=== PATIENT | female | born 1965 | race Caucasian/White ===

== ENCOUNTER 2016-04-01 13:30 | Inpatient (IN) | payer OTHER, MEDICARE ==
[~2016-04-01] VITALS: Ht 161.3 cm; Wt 121.7 kg
[~2016-04-01 13:30] MED LIST: CIPRO 500MG (E500 MG PO; FLAG500 PO; REGLAN10 MG PO
--- NOTE | 2016-04-01 13:40 | NUR ---
50 Y/0 FEMALE BIBA, ON PEER, FOR PSYCH EVAL. PER EMS, PTS MOTHER CALLED 911 BECAUSE "FRIENDS SAID SHE SAID SHE WAS GOING TO KILL HERSELF .. FAMILY MEMBERS CONCERNED FOR HER SAFETY". PT PLEASANT ON ARIVAL TO ED. STATING SHE HAS A "CHEMICAL IMBALANCE" PT ARRIVES WITH 2 PAGE HAND WRITTEN NOTE, WRITTEN BY MOTHER, REGARDING PT'S HISTORY, PLACED WITH CHART
--- NOTE | 2016-04-01 13:41 | NUR ---
SECURITY AT BEDSIDE TO DINO PINEDA
--- NOTE | 2016-04-01 13:53 | NUR ---
PT REFUSING TO GET CHANGED EXPLAINED TO PT ALL THAT NEEDS TO HAPPEN FOR HER TO BE EVALUATED BY CRISIS PT STATES SHE WILL JUST LEAVE SECURITY AT BEDSIDE PT AWARE THE LONGER SHE TAKES TO UNDRESS THE LONGER IT WILL TAKE FOR HER TO BE EVALUATED
--- NOTE | 2016-04-01 14:05 | NUR ---
PT TOLD SHE WOULD BE HERE FOR A FEW DAYS IF SHE DIDN'T CHANGE INTO PAPER SCRUBS PT STATES IM GOING TO CHANGE THEN PT GIVEN PAPER SCRUBS AND SHOWN TO THE BR
--- NOTE | 2016-04-01 14:08 | ED PSYCHIATRIC COMPLAINT ---
See Addendum History of Present Illness General Chief Complaint: Psychiatric Related Complaint Stated Complaint: BIBA ON PEER Source: patient, old records, EMS Exam Limitations: clinical condition Vital Signs & Intake/Output Vital Signs & Intake/Output Vital Signs Date Time Temp Pulse Resp B/P Pulse O2 O2 Flow FiO2 Ox Delivery Rate 04/02 0434 Room Air 04/02 0343 98.8 96 18 151/90 95 Room Air 04/02 0008 Room Air 04/01 2026 97.9 94 18 144/91 92 Room Air 04/01 1537 98.9 93 18 103/64 92 Room Air 04/01 1443 97.8 04/01 1431 97 04/01 1336 97.8 92 18 164/91 98 Room Air ED Intake and Output 04/02 0000 04/01 1200 Intake Total 0 Output Total Balance 0 Intake, Oral 0 Patient 210 lb Weight Allergies Coded Allergies: daptomycin (Severe, PALPITATIONS 04/01/16) Penicillins (Intermediate, HIVES 01/23/16) adhesive tape (Intermediate, BLISTERS 01/24/16) povidone-iodine (Intermediate, BLISTERS AND SKIN SLOUGHING 01/23/16) Uncoded Allergies: TEGADERM (BLISTERS 01/26/12) Reconcile Medications Ciprofloxacin (Cipro) 500 MG TAB 1 TAB PO BID GASTROENTERITIS METOCLOPRAMIDE HCL (Reglan) 10 MG TAB 1 TAB PO TID PRN NAUSEA Metronidazole (Flagyl) 500 MG TAB 500 MG PO Q6 GASTROENTERITIS Triage Note: 50 Y/0 FEMALE SONAM, ON PEER, FOR PSYCH EVAL. PER EMS, PTS MOTHER CALLED 911 BECAUSE "FRIENDS SAID SHE SAID SHE WAS GOING TO KILL HERSELF .. FAMILY MEMBERS CONCERNED FOR HER SAFETY". PT PLEASANT ON ARIVAL TO ED. STATING SHE HAS A "CHEMICAL IMBALANCE" PT ARRIVES WITH 2 PAGE HAND WRITTEN NOTE, WRITTEN BY MOTHER, REGARDING PT'S HISTORY, PLACED WITH CHART Triage Nurses Notes Reviewed? yes Onset: Just prior to arrival Duration: day(s): Timing: recent history Severity: moderate Associated Symptoms: anxiety, impaired concentration, suicidal ideation LMP (ages 10-50): unknown : No Patient currently breastfeeds: No HPI: Mother called police for reports that the patient had suicidal ideation expressed to her friends. The patient denies suicidality her chills nausea vomiting diarrhea abdominal pain chest pain shortness of breath headache dysuria rash bleeding hallucination homicidal ideation. Initially she resisted protocol of undressing and laboratory exams. (JOHN LEE MD) Past History Travel History Traveled to [place] past 21 day No Medical History Any Pertinent Medical History? see below for history Neurological: NONE EENT: NONE Cardiovascular: NONE, hypertension Respiratory: NONE Gastrointestinal: NONE Hepatic: NONE Renal: NONE Musculoskeletal: 19 LEVEL SPINAL FUSION POST OP STAPH Psychiatric: NONE Endocrine: NONE Blood Disorders: NONE Cancer(s): NONE RN REHAB/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, history of hysterectomy Other Medical Hx: History of extensive back surgeries for scoliosis; bipolar disorder Pneumonia Vaccine: 12/04/15 Surgical History Surgical History: , hysterectomy, BREAST REDUCTION L ACL SHOULDER REPAIR TONSILECTOMY ADDNOIDS REMOVED Psychosocial History Who do you live with Other (see notes) What is your primary language Welsh Tobacco Use: Current Daily Use Daily Tobacco Use Amount/Type: => 5 Cigarettes daily Family History Hx Contributory? No (JOHN LEE MD) Review of Systems Review of Systems Constitutional: Reports: no symptoms. EENTM: Reports: no symptoms. Respiratory: Reports: no symptoms. Cardiovascular: Reports: no symptoms. GI: Reports: no symptoms. Genitourinary: Reports: no symptoms. Musculoskeletal: Reports: no symptoms. Skin: Reports: no symptoms. Neurological/Psychological: Reports: see HPI, anxiety, confusion, depressed, emotional problems. Hematologic/Endocrine: Reports: no symptoms. Immunologic/Allergic: Reports: no symptoms. All Other Systems: Reviewed and Negative (JOHN LEE MD) Physical Exam Physical Exam General Appearance: well developed/nourished, alert, awake, anxious, mild distress Head: atraumatic, normal appearance Eyes: Bilateral: normal appearance, PERRL, EOMI. Ears, Nose, Throat: normal pharynx, normal ENT inspection, hearing grossly normal Neck: normal inspection, supple Respiratory: normal breath sounds Cardiovascular: regular rate/rhythm Gastrointestinal: soft, non-tender Extremities: normal range of motion Neurological/Psychiatric: no motor/sensory deficits, awake, agitated, alert, anxious, pigment and lacquer mixer II-XII nml as tested, oriented x 3 Appearance/Memory/Insight: disheveled, impaired insight Behavoir/Eye Contact/Speech: uncooperative, threatening eye contact Thoughts/Hallucinations: no apparent hallucination Skin: intact, normal color, warm/dry SAD PERSONS SAD PERSONS Response Value Age <19 or >45 years? yes 1 Depression/Hopelessness? yes 2 Previous Attempts/Psych Care yes 1 Excessive Ethanol/Drug Use? yes 1 Rational Thinking Loss? yes 2 Single//? yes 1 Organized/Serious Attempt yes 2 Social Support? has support 0 Stated Future Intent? yes 2 Total 12 SAD PERSONS Done? yes (JOHN LEE MD) Progress Differential Diagnosis: drug intoxication, drug overdose, drug withdrawal, electrolyte abnormality, hypoglycemia Plan of Care: Orders Procedure Date/time Status Regular Diet 04/01 D Active ED CRISIS PSYCH CONSULT 04/01 1354 Active Continuous Observation Monitor 04/01 1344 Active URINE DRUG SCREEN FOR ER ONLY 04/01 1344 Complete ETHANOL 04/01 1344 Complete COMPREHENSIVE METABOLIC PANEL 04/01 1344 Complete CBC WITHOUT DIFFERENTIAL 04/01 134 Complete Laboratory Tests 04/01/16 1548: Urine Opiates Screen < 100.00, Methadone Screen < 40, Barbiturate Screen < 60, Ur Phencyclidine Scrn < 6.00, Amphetamines Screen < 100, U Benzodiazepines Scrn < 85, Urine Cocaine Screen < 50, Urine Cannabis Screen < 5.00 04/01/16 1431: Anion Gap 11, Estimated GFR > 60, BUN/Creatinine Ratio 21.7, Glucose 92, Calcium 9.6, Total Bilirubin 0.5, AST 22, ALT 39, Alkaline Phosphatase 98, Total Protein 7.7, Albumin 4.3, Globulin 3.4, Albumin/Globulin Ratio 1.3, CBC w Diff NO MAN DIFF REQ, RBC 4.43, MCV 90.9, MCH 30.9, RDW 13.2, MPV 7.8, Gran % 66.0, Lymphocytes % 24.1, Monocytes % 6.4, Eosinophils % 2.8, Basophils % 0.7, Absolute Granulocytes 5.9, Absolute Lymphocytes 2.2, Absolute Monocytes 0.6, Absolute Eosinophils 0.3, Absolute Basophils 0.1, PUBS MCHC 34.0, Serum Alcohol < 10.0 7:16 AM Patient signed out to me by Dr. Lee. Pending crisis evaluation. (MINH RAWLS,BETZY) Hand-Off Endorsed To: BETZY WILKINSON MD Endorsed Time: 1899 Pending: consult (JOHN LEE MD) Hand-Off Endorsed To: JOHN LEE MD Endorsed Time: 0700 Pending: consult (INPATIENT BED SEARCH) (BETZY WILKINSON MD) Departure Departure Disposition: STILL A PATIENT Condition: Stable Clinical Impression Primary Impression: Bipolar disorder Qualifiers: Active/Remission status: currently active Current bipolar episode type: mixed Current episode severity: moderate Qualified Code: F31.62 - Bipolar disorder, current episode mixed, moderate Secondary Impressions: Chronic pain syndrome Referrals: CATHLEEN MEDINA MD (PCP/Family) Departure Forms: Customer Survey General Discharge Information (JOHN LEE MD)
--- NOTE | 2016-04-01 14:28 | NUR ---
PT ASSISTED BY TWO FEMALE NURSES TO CHANGE INTO PAPER SCRUBS.
[2016-04-01 14:40] LABS: ABSOLUTE BASOPHIL COUNT 0.1 /CUMM (0.0-0.2); ABSOLUTE EOSINOPHIL COUNT 0.3 /CUMM (0.0-0.7); ABSOLUTE GRANULOCYTE CT 5.9 /CUMM (1.4-6.5); ABSOLUTE LYMPH COUNT 2.2 /CUMM (1.2-3.4); ABSOLUTE MONOCYTE COUNT 0.6 /CUMM (0.10-0.60); BASOPHIL % 0.7 % (0.0-2.0); EOSINOPHIL % 2.8 % (0-5); HEMATOCRIT 40.3 % (37-47); MEAN CORPUSCULAR HGB 30.9 PG (27.0-31.0); MEAN CORPUSCULAR VOLUME 90.9 FL (81.0-99.0); MEAN PLATELET VOLUME 7.8 FL (7.4-10.4); PLATELET COUNT 329 /CUMM (130-400); RBC DISTRIBUTION WIDTH 13.2 % (11.5-14.5); RED BLOOD CELL CT 4.43 /CUMM (4.20-5.40)
--- NOTE | 2016-04-01 14:43 | NUR ---
PT C/O BACK PAIN MEDICATED WITH MOTRIN AT THIS TIME FIRST PILL PT DROPPED ON FLOOR
--- NOTE | 2016-04-01 15:07 | NUR ---
ASSUMING CARE OF PT AT THIS TIME
--- NOTE | 2016-04-01 16:16 | NUR ---
PER SITTER STAFF, PT AGITATED, STATING HER BACK IS HURTING HER AND SHE WANTS TO LEAVE. THIS RN TO BEDSIDE. CHAIR FROM CONSULTATION ROOM OFFERED, PT STATES THAT WOULD HELP A LOT WITH HER BACK PAIN. POC EXPLAINED TO PATIENT. PT STATES SHE CAME HERE ON HER OWN FREE WILL AND HAS MANY OUTPATIENT PROVIDERS IN PLACE FOR HER PSYCHIATRIC NEEDS. PEER LOCATED IN PT'S CHART.
--- NOTE | 2016-04-01 16:29 | NUR ---
ROGER PROVIDED. AWARE THAT WE'RE WAITING ON URINE RESULTS.
--- NOTE | 2016-04-01 18:27 | NUR ---
CALLED DIETARY FOR A TURKEY SANDWICH WITH MUSTARD AND MAYONAISE PER PTS REQUEST...OK PER DR LEE
--- NOTE | 2016-04-01 18:57 | NUR ---
per ore charger frank patient is to no longer use the phone because she is calling family and friends to be discharged and she is not being discharged and does not need a ride home
--- NOTE | 2016-04-01 19:03 | NUR ---
PTs MOTHER CALLED ASKING IF SHE SHOULD COME IN AND INSOLE BOTTOM FILLER PT ADVISED NOT TO INSOLE BOTTOM FILLER PT AT THIS TIME MOTHERS PHONE NUMBER [phone]
--- NOTE | 2016-04-01 19:13 | NUR ---
PT MEDICATED WITH DAILY PSYCH MEDS AT THIS TIME, PT COOPERATIVE WITH MEDS, CURRENTLY STANDING WATCHING TV IN ROOM, MAKING NO ATTEMPTS TO LEAVE AT THIS MOMENT.
--- NOTE | 2016-04-01 19:30 | NUR ---
PATIENT INSISTING ON GETTING HER PRESCRIPTIONS AND DISCHARGE PAPERWORK INSISTING SHE IS NOT STAYING HERE
--- NOTE | 2016-04-01 21:09 | NUR ---
CRISIS AT BEDSIDE SETTING LIMITS WITH PT
--- NOTE | 2016-04-01 22:00 | NUR ---
ATTEMPTED TO MEDICATE PT WITH PM MEDS, PT REFUSING ALL MEDS AT THIS TIME STATING "I'M GOING TO JUST GO OUT AND HAVE A CIGARETTE SO I DON'T NEED ANY OF THIS STUFF." PT CURRENTLY SITTING IN ROOM, JUST FINISHED SPEAKING WITH CRISIS. SITTERS REMAIN IN ATTENDANCE.
--- NOTE | 2016-04-01 22:10 | NUR ---
DISCUSSED PHONE PRIVILEGES WITH CRISIS. THIS RN AND CRISIS AGREED THAT PT CAN HAVE ONE BRIEF PHONE CALL TO SON. PT MADE AWARE OF PHONE CALL PRIVILEGE.
--- NOTE | 2016-04-01 22:18 | NUR ---
PER CRISIS PT ALLOWED TO MAKE ONE PHONE CALL TO CALL HER SON. PATIENT MADE PHONE CALL AND LEFT MESSAGE.
--- NOTE | 2016-04-01 23:00 | NUR ---
PT REFUSING MEDICATIONS AGAIN. STATES SHE DOES NOT WANT TO TAKE THEM HERE.
--- NOTE | 2016-04-01 23:22 | NUR ---
PT REFUSE VITALS. INFORMED FLORI GARCES
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
--- NOTE | 2016-04-02 01:49 | NUR ---
PT SLEEPING AT THIS TIME, SITTER AT BEDSIDE, NO DISTRESS NOTED.
--- NOTE | 2016-04-02 03:49 | NUR ---
PT MEDICATED WITH 800MG MOTRIN. PT CALM AND COOPERATIVE
--- NOTE | 2016-04-02 05:13 | NUR ---
PT SLEEPING AT THIS TIME, SITTER AT BEDSIDE FOR SAFETY, NAD.
--- NOTE | 2016-04-02 06:39 | NUR ---
PT SLEEPING, SITTER AT BEDSIDE FOR SAFETY, NAD
--- NOTE | 2016-04-02 08:11 | NUR ---
PT MEDICATED WITH TYLENOL FOR H/A PAIN PER PT REQUEST AND ORDERS OF DR LEE. PT THEN REQUESTED ALL AM MEDICATIONS. REQUESTED SAME FROM DR LEE AND PHARMACY.
--- NOTE | 2016-04-02 08:32 | NUR ---
PT MEDICATED WITH CYMBALTA, NORVASC AND RISPERIDONE PER ORDERS DR LEE. ICE COFFEE REQUESTED FROM [employer] PER PATIENT REQUEST.
--- NOTE | 2016-04-02 12:02 | NUR ---
PT LYING ON BED WATCHING TV. PT CALM AND COOPERATIVE WITH VITALS. PT REPORTS HER MOTHER IS COMING IN AT 1300 TO MEET WITH CRISIS. PROVIDED PT WITH BLANKET SHE REPORTED SHE IS COLD.
--- NOTE | 2016-04-02 13:44 | NUR ---
FAMILY PRESENT IN ROOM WITH PATIENT. PT IS CALM AND COOPERATIVE.
--- NOTE | 2016-04-02 15:58 | NUR ---
PT REPORTS THAT HER FAMILY MEETING WITH SW TODAY WENT WELL. PT STATES "THEY JUST WANT WHAT IS BEST FOR ME". PT IS A BED SEARCH.
--- NOTE | 2016-04-02 17:17 | NUR ---
PT AWAKE IN ROOM 13 WATCHING TV/ PT CALM AND COOPERATIVE. PT REQUESTED AND WAS PROVIDED WITH NIDHI BORGES. PT ASKED IF THERE WERE ANY BEDS AVAILABLE HERE.
--- NOTE | 2016-04-02 18:57 | NUR ---
PT REFUSING VITALS NURSE AWARE
--- NOTE | 2016-04-02 19:08 | NUR ---
PT SITTING ON BED. PT'S MOTHER VISITED. SITTERS PRESENT
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
--- NOTE | 2016-04-02 21:01 | NUR ---
PT CALM AND COOPERATIVE, WATCHING TV IN ROOM 13. PT ALLOWED VITALS TO BE TAKEN. PT REQUESTING SOMETHING FOR PAIN (BACK, KNEES AND HEAD). PIS 09/11. SITTER PRESENT FOR SAFETY
--- NOTE | 2016-04-02 22:08 | NUR ---
MEDICATED PT WITH RISPERIDONE 1MG AND MOTRIN 600MG
--- NOTE | 2016-04-03 01:26 | NUR ---
PT SLEEPING ON BED IN ROOM. NO APPARENT DISTRESS NOTED. SITTER PRESENT
--- NOTE | 2016-04-03 03:30 | NUR ---
PT AWAKE FOR VITAL SIGNS, ALERT AND ORIENTED, DENIES ANY REQUESTS. VSS. SITTER REMAINS AT DOORWAY.
--- NOTE | 2016-04-03 06:19 | NUR ---
PT AWAKE AND ALERT, CALM COPERATIVE , SITTING UP ON BED WATCHING TV . OFFERS NO COMPLAINTS
--- NOTE | 2016-04-03 08:07 | NUR ---
ASSUMED CARE OF THIS PATIENT REPORT RECEIVED FROM FLORI CUNHA PT STANDING UP IN ROOM UPON THIS RN ARRIVAL. COMPLAINS OF GENERALIZED BODY PAINS. REQUESTING MEDS FOR PAIN AND AM MEDS. DISCUSSED NEED FOR DAILY NORVASC ORDER WITH DR BUSH AND CALLED PHARMACY FOR OTHER AM MEDS.
--- NOTE | 2016-04-03 08:29 | NUR ---
PT MEDICATED WITH CYMBALTA, NORVASC, RISPERIDONE AND MOTRIN PER ORDERS. CALLED [facility] FOR ICE COFFEE, SPOKE WITH VISHNU.
--- NOTE | 2016-04-03 10:00 | NUR ---
PT STATES " WAS HERE BRIEFLY AND SAID HE WAS GOING TO GIVE ME A NICOTINE PATCH AND SOMETHING MORE FOR PAIN". ADVISED PATIENT WILL INVESTIGATE SAME.
--- NOTE | 2016-04-03 11:30 | NUR ---
PT MEDICATED WITH NICOTINE PATCH AND TYLENOL PER ORDERS EATING LUNCH AT PRESENT
--- NOTE | 2016-04-03 13:21 | NUR ---
PT REFUSED EKG AT THIS TIME.
--- NOTE | 2016-04-03 13:28 | NUR ---
PT RE-VITALED. REQUESTS PATIENT ADVOCATE NUMBER, PHONE NUMBER PROVIDED BY UMBERTO GOFF. ASKED PATIENT IF THERE WAS SOMETHING THIS RN COULD ASSIST HER WITH AND PT RESPONDED THAT IT WAS ABOUT HER FAMILY HAVING "DONE THIS TO HER BEFORE", "THEY DIDN'T LIKE ME TALKING AND FOLDING LAUNDRY AT THE SAME TIME", "IT'S MY HOUSE ANYWAYS". PT IS WITH RELATIVELY CALM AFFECT WHY STATING ALL OF THE ABOVE. UMBERTO REMAINS AT DOOR. WILL CONTINUE TO MONITOR.
--- NOTE | 2016-04-03 15:45 | NUR ---
ASSUMED CARE OF PT PER FLORI LIMON.
--- NOTE | 2016-04-03 16:27 | NUR ---
PT MEDICATED WITH 600MG MOTRIN PO FOR BACK PAIN.
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
--- NOTE | 2016-04-03 20:04 | NUR ---
REPORT GIVEN TO FLORI CROSS ON CPS.
--- NOTE | 2016-04-03 20:05 | NUR ---
SECUTIRY CALLED TO ASSIST PT DOWN TO CPS ALONG WITH KACIETER.
--- NOTE | 2016-04-03 23:06 | NUR ---
PT IS A 50 YR OLD FEMALE WHO RETURNS TO THIS UNIT WITH BIPOLAR DISORDER, DEPRESSED. PT STATES SHE ALSO HAS OCD. PT IS HERE ON A PEC. 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 PT HAS HAD MULTIPLE SURGERIES AND SPINAL FUSIONS. SHE HAS RECENTLY BEEN NON-COMPLIANT C MEDS. PT LIVES C MOM, WHO COMPLAINS SHE HAS BEEN ACTING BIZARRELY. HER SLEEP HAS BEEN POOR. PT LAST HERE IN Jan.
--- NOTE | 2016-04-04 06:49 | NUR ---
PATIENT WAS INITIALLY ANXIOUS AT BEGINNING OF NIGHT, BUT WAS ABLE TO SLEEP AFTER TAKING PRN HYDROXYZINE.
[2016-04-04 07:58] VITALS: BP 149/104
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
[2016-04-04 12:09] VITALS: BP 171/96
--- NOTE | 2016-04-04 12:56 | History & Physical ---
General Information and HPI MD Statement: I have seen and personally examined GREG SHARMA and documented this H&P. The patient is a 50 year old F who presented with a patient stated chief complaint of suicidal and illegal drug use. Source of Information: patient Exam Limitations: no limitations History of Present Illness: 50-year-old female with past medical history sick for hypertension, chronic back pain, history of spinal fusion in the past, history of bipolar disorder, history of opiate use in the past who is admitted with delusions as well as according to the family patient was suicidal. Family did not feel safe with the patient going home. According to the note, patient was dealing Xanax from other family members. She was also doing some veered pain. Currently she does complain of pain in her back and in her knees. She had been treated recently with some kind of infection with Cipro and Flagyl. She claims that she has finished the course. She takes Norvasc for high blood pressure but her blood pressure seems to be running high. Allergies/Medications Allergies: Coded Allergies: daptomycin (Severe, PALPITATIONS 04/01/16) Penicillins (Intermediate, HIVES 01/23/16) adhesive tape (Intermediate, BLISTERS 01/24/16) povidone-iodine (Intermediate, BLISTERS AND SKIN SLOUGHING 01/23/16) Uncoded Allergies: TEGADERM (BLISTERS 01/26/12) Home Med list Ciprofloxacin (Cipro) 500 MG TAB 1 TAB PO BID GASTROENTERITIS METOCLOPRAMIDE HCL (Reglan) 10 MG TAB 1 TAB PO TID PRN NAUSEA Metronidazole (Flagyl) 500 MG TAB 500 MG PO Q6 GASTROENTERITIS Past History Travel History Traveled to [place] past 21 day No Medical History Neurological: LEFT SIDED DEFICIT; BANGED HEAD A FEW TIMES; EENT: NONE Cardiovascular: NONE, HTN- NORVASC Respiratory: SMOKES 1/2 TO 2 A DAY Gastrointestinal: GASTRIC DISTRESS "DAILY" Hepatic: NONE Renal: HX OF DAMAGE TO KIDNEYS AFTER EXTENSIVE ANTIBIOTI Musculoskeletal: 19 LEVEL SPINAL FUSION POST OP STAPH Psychiatric: BIPOLAR; OCD; DEPRESSION Endocrine: NONE Blood Disorders: MULTIPLE TRANSFUSIONS AND BONE GRAFTING Cancer(s): NONE 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 Home Employment History Employment Disability Profession/Employer Has not worked for 10 years Review of Systems Review of Systems Constitutional: Reports: see HPI. EENTM: Reports: see HPI. Cardiovascular: Reports: see HPI. Respiratory: Reports: see HPI. GI: Reports: see HPI. Genitourinary: Reports: see HPI. Musculoskeletal: Reports: see HPI. Skin: Reports: see HPI. Neurological/Psychological: Reports: see HPI. Exam & Diagnostic Data Last 24 Hrs of Vital Signs/I&O Vital Signs Date Time Temp Pulse Resp B/P Pulse O2 O2 Flow FiO2 Ox Delivery Rate 04/04 1209 80 171/96 04/04 0803 91 149/104 04/04 0758 96.7 91 149/104 04/03 1515 99.3 84 18 148/67 96 04/03 1327 98.1 94 20 165/83 97 Room Air Intake & Output 04/04 1600 04/04 0800 04/04 0000 Intake Total Output Total Balance Patient 268 lb Weight Physical Exam General Appearance Alert, Oriented X3, Cooperative, No Acute Distress Skin No Rashes HEENT PERRLA Neck Supple Cardiovascular Regular Rate, Normal S1, Normal S2 Lungs Clear to Auscultation Abdomen Normal Bowel Sounds, Soft, No Tenderness Neurological Cranial Nerves II through XII: intact Extremities No Edema Last 24 Hrs of Labs/Alhaji: Laboratory Tests 04/03 04/01 04/01 1248 1548 1431 Chemistry Sodium (137 - 145 mmol/L) 142 Potassium (3.5 - 5.1 mmol/L) 4.6 Chloride (98 - 107 mmol/L) 106 Carbon Dioxide (22 - 30 mmol/L) 25 Anion Gap (5 - 16) 11 BUN (7 - 17 mg/dL) 13 Creatinine (0.5 - 1.0 mg/dL) 0.6 Estimated GFR (>60 ml/min) > 60 BUN/Creatinine Ratio (7 - 25 %) 21.7 Glucose (65 - 99 mg/dL) 92 Calcium (8.4 - 10.2 mg/dL) 9.6 Total Bilirubin (0.2 - 1.3 mg/dL) 0.5 AST (14 - 36 U/L) 22 ALT (9 - 52 U/L) 39 Alkaline Phosphatase (<127 U/L) 98 Total Protein (6.3 - 8.2 g/dL) 7.7 Albumin (3.5 - 5.0 g/dL) 4.3 Globulin (1.9 - 4.2 gm/dL) 3.4 Albumin/Globulin Ratio (1.1 - 2.2 %) 1.3 TSH (0.270 - 4.200 uIU/mL) 2.110 Hematology CBC w Diff NO MAN DIFF REQ WBC (4.8 - 10.8 /CUMM) 9.0 RBC (4.20 - 5.40 /CUMM) 4.43 Hgb (12.0 - 16.0 G/DL) 13.7 Hct (37 - 47 %) 40.3 MCV (81.0 - 99.0 FL) 90.9 MCH (27.0 - 31.0 PG) 30.9 RDW (11.5 - 14.5 %) 13.2 Plt Count (130 - 400 /CUMM) 329 MPV (7.4 - 10.4 FL) 7.8 Gran % (42.2 - 75.2 %) 66.0 Lymphocytes % (20.5 - 51.1 %) 24.1 Monocytes % (1.7 - 9.3 %) 6.4 Eosinophils % (0 - 5 %) 2.8 Basophils % (0.0 - 2.0 %) 0.7 Absolute Granulocytes (1.4 - 6.5 /CUMM) 5.9 Absolute Lymphocytes (1.2 - 3.4 /CUMM) 2.2 Absolute Monocytes (0.10 - 0.60 /CUMM) 0.6 Absolute Eosinophils (0.0 - 0.7 /CUMM) 0.3 Absolute Basophils (0.0 - 0.2 /CUMM) 0.1 PUBS MCHC (33.0 - 37.0 G/DL) 34.0 Toxicology Urine Opiates Screen (>2000 NG/ML) < 100.00 Methadone Screen (>300 NG/ML) < 40 Barbiturate Screen (>200 NG/ML) < 60 Ur Phencyclidine Scrn (>25 NG/ML) < 6.00 Amphetamines Screen (>1000 NG/ML) < 100 U Benzodiazepines Scrn (>200 NG/ML) < 85 Urine Cocaine Screen (>300 NG/ML) < 50 Urine Cannabis Screen (>50 NG/ML) < 5.00 Serum Alcohol (<10 MG/DL) < 10.0 Urines Urine Test Cancelled 04/01 1344 Chemistry Hemoglobin A1c (<5.7) 5.6 Laboratory Tests 04/03/16 1248: Urine Test Cancelled Assessment/Plan Assessment: 50-year-old female with past medical history sick for hypertension, chronic back pain, history of spinal fusion in the past, history of bipolar disorder, history of opiate use in the past who is admitted with delusions as well as according to the family patient was suicidal. Blood pressure not controlled. I will increase the dose of her Norvasc. Patient also takes Cymbalta. I will the psych management per psychiatry. For pain management she is ordered ibuprofen. Can also add Tylenol. Patient has finished the course of her antibiotics therefore no need to continue. As Ranked By This Provider Problem List: 1. Hypertension 2. Bipolar disorder Qualifiers Active/Remission status: currently active Current bipolar episode type: mixed Current episode severity: moderate Qualified Code: F31.62 - Bipolar disorder, current episode mixed, moderate 3. Chronic back pain 4. Suicidal ideation Miscellaneous Miscellaneous Documentation Attending Case Discussed With: LIONEL NELSON MD Primary Care Physician: CATHLEEN MEDINA MD Patient sees these Specialists IOP Level of Patient Care: [facility]
--- NOTE | 2016-04-04 13:24 | SOCIAL WORKER PROG NOTE PSYCH ---
Social Work Progress Note Progress Note Interview with patient to complete Social Assessment and plan for family meeting. Patient presented as alert, calm, cooperative and oriented x3. The patient exhibited improvement by an absence of delusional thought process and speech throughout session. The patient answered questions asked in a coherent and conversational manner. The patient acknowledges that her behavior is negatively impacted, when she is not compliant with her medications. She identified the barriers to her not filling her medication as being her chronic pain, missed appointment with her PCP and lack of motivation. The patient acknowledged the importance of taking her medication on a regular basis to avoid decompensating. The patient states that her family is very supportive of her and that she is agreeable to a family meeting with her mother, Erika Limon. The patient's attitude towards her family has shifted, to being more positive, since the patient's intake assessment. The patient states she is willing to take part in a family meeting and address everyone's concerns. Contacted patient's mother, Erika Limon to plan family meeting for 04/05/16 @ 3:30 p.m. over the phone. Erika states she is concerned that the patient will stop taking her medications and relapse once she is discharged from the hospital, which she states is a pattern for her. Acknowledged Erika 's concerns and expressed that a purpose of the family meeting, is to have the patient know of everyone's concerns, in order for her to move forward with her treatment. Confirmed with Erika that the family meeting will occur, via phone at 3:30 p.m. on 04/05/2016. This note prepared by Tyson Vora MSW Repair Mechanic and signed off by Fartun Hernandez LCSW
--- NOTE | 2016-04-04 13:46 | NUR ---
Pt was visible in the milieu. She has been attending groups and having active participation in them. In the milieu she has been interacting with her peers, and cooperative with staff direction. Pt denies having thoughts of harming self when asked.
--- NOTE | 2016-04-04 15:27 | CPS MD/APRN INITIAL ASSE PSYCH ---
Psychiatric Admission Compactor Driver's Note Reviewed: Yes Patient Seen and Examined: Yes Identifying Information: Pt is a 50 year old female. Chief Complaint: "My medical stuff is out of control" Reaction to Hospitalization: Pleasant and cooperative to treatment. History of Present Illness Onset of Illness: SONAM on a PEER as pt expressed suicidal ideation per pt's family. Pt currently denies any SI and states has reasons for depression because of her multiple medical problems. Circumstances Leading to Admission: SONAM on a PEER as pt expressed suicidal ideation per pt's family. Followed by IOP at [facility] (Risperdal 1mg HS, 0.5mg AM. Cymbalta 30mg AM, Atarax 50mg HS) but was to transfer to [place] for medical reasons. Stopped taking the medications because she ran out of medication. Now wishes to be followed by [facility] again. Problem(s) Justifying Need for Admission: Depression, suicidal ideations, visual hallucinations s/p not taking prescribed psychiatric medication. Past Psychiatric History Past Diagnosis(es)- if any: Bipolar disorder, depressive disorder, anxiety disorder. Past Precipitating Factors- if any: Her father dying in November,. A cousin also recently . Other issues include family issues, finances and employment. - Include inpatient and outpatient treatment Treatment History: Inpatient tx at [facility] (January 2016), [facility] (2012). Currently sees Dr. Kirkpatrick as Outpatient. History of Suicide Attempts or Gestures Hx of suicidal ideation in past. 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 Opioids, Cocaine and Adderall, last used January 2016. Allergies: Coded Allergies: daptomycin (Severe, PALPITATIONS 04/01/16) Penicillins (Intermediate, HIVES 01/23/16) adhesive tape (Intermediate, BLISTERS 01/24/16) povidone-iodine (Intermediate, BLISTERS AND SKIN SLOUGHING 01/23/16) Uncoded Allergies: TEGADERM (BLISTERS 01/26/12) Home Med List: Patient reports she ran out of her prescribed medications Risperdal, Cymbalta & Vistaril. 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 Musculoskeletal: 19 LEVEL SPINAL FUSION POST OP STAPH, Scoliosis, "chronic joint infections" Psychiatric: BIPOLAR; OCD; DEPRESSION Endocrine: NONE Blood Disorders: MULTIPLE TRANSFUSIONS AND BONE GRAFTING Cancer(s): NONE 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/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, history of hysterectomy Other Medical Hx: History of extensive back surgeries for scoliosis; bipolar disorder History of MRSA: No History of CDIFF: No Isolation History: Standard Pneumonia Vaccine: 12/04/15 Influenza Vaccine: 03/19/14 Surgical History Surgical History: hysterectomy, back & shoulder injury surgery Psychiatric Family/Social Hx Family History Psychiatric Illness: Maternal grandmother & brother: bipolar Maternal Cousin: Schzophrenia Substance Use: Brother: "anything and everything, clean now" Suicides: Maternal Grandfather and Paternal great grandfather Social History Living Situation: Lives with Mother, sister, sister's and their children, and pt's son (15 y.o) Significant Relationships (family/friends): Has a good relationship with her mother who is very supportive of her treatment. 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 Strugged with pain medication and her nursing license was suspended for stealing drugs. Legal: None, The patient has had some recent contact with police, secondary to tresspassing on neighbors yards in the middle of the night. Healthly Behaviors Screening Tobacco Screening Tobacco Use from ED Docu: Current Daily Use Daily Tobacco Use Amount/Type: => 5 Cigarettes daily - If tobacco counseling indicated - the following topics are required. - #1 Recognizing dangerous situations. - #2 Coping Skills. - #3 Basic information about quitting. Status of Tobacco Cessation Counseling: #1, #2 AND #3 Completed Cessation Med Status: Nicotine Patch Ordered Alcohol Screening - ETOH screen POS if BAL >=80 or Audit-C>= M4/F3 Audit-C Score from Diag Assess: 0 Alcohol Use Screening Results: Neg per Audit C &/or BAL - If ETOH counseling indicated - the following topics are required. - #1 Express concern about the patient's - drinking at unhealthy levels, include informing - of national norms for moderate drinking: - men <= 14 drinks/week, max 4 drinks/occasion - women <= 7 drinks/week, max 3 drinks/occasion - #2 Providing feedback, including linking alcohol to - negative physical effects (liver injury, hypertension) - negative emotional effects (relationship problems and - depression) - negative occupational consequences (reduced work - performance) - #3 Advising the patient to abstain from alcohol or - to drink below national norms for moderate drinking - (as listed above). Status of ETOH Use Counseling: N/A B/C NO ETOH Use Metabolic Screening - Screen if on a Neuroleptic Medication - Metabolic screening should include: - Blood Pressure, BMI, Glucose or Hgb A1c, & a - Lipid profile from within the past 365 days. Metabolic Screening () Not Applicable, patient not on a neuroleptic. OR ([x]) Patient on a neuroleptic(s) . Enter below results for Glucose or Hemoglobin A1C, and lipid panel if obtained during the last 365 days. BMI: 46.800 Blood Pressure: 171/96 Laboratory Results (If applicable): Lab Cholesterol 165 MG/DL 01/23/16 2345 Cholesterol/HDL Ratio 3 % 01/23/16 2345 Glucose 92 mg/dL 04/01/16 1431 HDL Cholesterol 51 mg/dL 01/23/16 2345 Hemoglobin A1c 5.6 04/01/16 1344 LDL Cholesterol, Calc 93 mg/dL 01/23/16 2345 Triglycerides 108 mg/dL 01/23/16 2345 Exam and Plan Mental Status Examination Ambulation Status: ambulates independently with steady gait. Appearance: appears her stated age, well groomed, appropriately dressed Attitude towards examiner: calm & cooperative Psychomotor activity: wnl Behavior: Thought Process: WNL Quality of speech: WNL Affect: congruent Mood: "varies, goes from calm to anxious" Suicidal Ideation: Currently denies but per crisis note states: "she wanted to kill herself for being in love with her boyfriend." Homicidal Ideation: denies Hallucinations: denies currently. Per crisis note "Per pt's family + Delusions, +AH / VH." Paranoid/Delusional Material: none Difficulties with thought organization: none Insight: good Judgment: fair Orientation: A&Ox3 Cognition: wnl Memory Function: WNL Estimate of intellectual functioning: average Assets/Strengths Patient Identified Assets/Strengths: Pt. is well educated and has support of family. Impression/Plan Impression and Plan: Pt is a 50 y.o female hx of bipolar disorder presented to ED and admitted for depressed episode with SI, visual and auditory hallicinations currently denies any SI and hallicinations. Restarted Risperdal, Cymbalta and Vistaril. 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 Additional information as needed from collaterals including her family. Anticipate once clinically stable, that the pt will be discharged to home and family and be refered to IOP. - Factors that would help patient function - in a less restrictive setting. Factors: Resolutions of SI - in a less restrictive setting. Factors: Resolutions of SI
[2016-04-04 16:03] VITALS: BP 155/98
[2016-04-04 19:47] VITALS: BP 128/72
--- NOTE | 2016-04-04 22:10 | NUR ---
PT IS STABLE WITH FULL RANGE OF AFFECT, VISIBLE WITHIN THE COMMUNITY AND INTERACTING WITH PEERS/STAFF. PT IS APPROPRIATE TO THE UNIT AND ATTENDING GROUPS. PT REPORTED FEELING THOUGH SHE WAS "ADJUSTING WELL TO THE UNIT THE SECOND TIME AROUND". VS ARE STABLE AND DENIES ANY SI/HI TO THIS MHW.
[2016-04-05 08:21] VITALS: BP 148/90
--- NOTE | 2016-04-05 11:28 | NUR ---
PT IS PRESENT ON THE UNIT, INTERACTING APPROPRIATELY WITH PEERS AND STAFF, ATTENDING GROUPS, VITAL SIGNS STABLE OVERALL, MOOD STABLE WITH FULL RANGE AFFECT, REPORTS MOOD IMPROVING SINCE ADMISSION, ONLY COMPLAINTS IS CHRONIC PAIN (BACK) MANAGED WITH MOTRIN AND TYLENOL PRN, TOLERATING WELL.
[2016-04-05 13:22] VITALS: BP 143/76
--- NOTE | 2016-04-05 15:53 | SOCIAL WORKER PROG NOTE PSYCH ---
Social Work Progress Note Progress Note Family meeting at 3:30 p.m. with patient, Pallavi Jean Baptiste LCSW, Kaden Mcarthur APRN and Tyson Vora Social Work Advertising Dispatch Clerks Supervisor on phone with patient's mother, Erika . Erika was made aware that an intake appointment was made for the patient with [facility] at 12:45 p.m. on 04/06/16 and the patient would begin IOP groups the next day. The imporatnce of the patient remaining compliant with her follow up treatment and medication was made clear. Erika expressed the concern that the patient have the trasportation in order to attend the appointments as her car was being repaired. Explained to Erika that the particulars of the trasportation could be worked out and the main goal was to have her support her daughter to remain engaged in treatment. The patient states she would call her mother later this evening to obtain some friends phone numbers to give her a ride as needed. In addition, there was a concern that the patient's pain would prevent her from attending group in IOP. The patient assured her mother that she would follow up with a doctor for pain management and use Motrin in the meantime. Erika had no more concerns and the meeting was concluded. This note prepared by VALERIA Mallory Advertising Dispatch Clerks Supervisor and signed off by Pallavi Jean Baptiste LCSW
--- NOTE | 2016-04-05 16:00 | CP SOUTH PROGRESS NOTE PSYCH ---
Psych (Inpt) Progress Note Progress Note Progress Note: I discussed this patient's progress to date, current mental status, treatment process in the context of the treatment plan, and discharge planning with staff/ team in the daily morning inpatient team meeting. I also met with the patient myself in individual session. A total of 50 minutes was spent with the patient with more than 50% spent in counseling and/or coordination of care. SUBJECTIVE: I'm doing OK, feeling OK. I'm a little overwhelmed. I need to get to my pain management." OBJECTIVE: Current Medications Sig/Sushil Start time Last Medication Dose Route Stop Time Status Admin Acetaminophen 650 MG .STK-MED ONE 04/05 1001 DC PO 04/05 1002 Acetaminophen 650 MG Q6-PRN PRN 04/04 1300 AC 04/05 PO 2100 Al Hydroxide/Mg 30 ML Q4-6 PRN PRN 04/03 1300 AC 04/04 Hydroxide PO 0929 Amlodipine Besylate 7.5 MG DAILY 04/05 1000 AC 04/05 PO 0825 Duloxetine HCl 30 MG DAILY 04/03 1000 AC 04/05 PO 0825 Hydroxyzine HCl 50 MG .STK-MED ONE 04/04 2252 DC PO 04/04 2253 Hydroxyzine HCl 50 MG AT BEDTIME NEED.. 04/03 1300 AC 04/04 PO 2257 Ibuprofen 600 MG Q6P PRN 04/02 2215 AC 04/05 PO 1935 Magnesium Hydroxide 30 ML AT BEDTIME PRN 04/03 1300 AC PO Nicotine 14 MG 0800 04/04 1145 AC 04/05 TOP 0824 Risperidone 1 MG BID 04/02 2200 AC 04/05 PO 0825 Vital Signs Date Time Temp Pulse Resp B/P Pulse O2 O2 Flow FiO2 Ox Delivery Rate 04/05 1951 96.9 83 142/85 04/05 1612 91 137/96 04/05 1322 94 143/76 04/05 0825 91 148/90 04/05 0821 96.2 91 148/90 ASSESSMENT: I met the patient twice today, once in individual session, and then again in a family meeting along with the patient, behavioral health worker Pallavi Gomez, Social Work Manager Fitness Tyson, and the patient's mother by conference call. Patient reports doing well, is happy to be back on her medications. States she is once again feeling stable, but needs to follow up with her pain management doctor when she gets home. She states "I'm in control of my thought process, in control of my emotions." Tolerating her medications well, to good effect. During our family meeting, the patient's mother offered her support, and will be happy to have the patient return home. Mother is supportive of the patient attending IOP, and taking medications as directed. Depression: 6/10; Anxiety: 3/10 (with 10 the worst.) Denies suicidal ideation, homicidal ideation, auditory hallucinations, visual hallucinations, paranoid ideation. She reports sleeping well at night, after taking Atarax at bedtime. Her appetite is "not bad." Speech is well articulated, goal-directed, average in rate, volume and tone. Calm and cooperative. A&Ox3. Logical. The patient understands the risks/benefits/side effects of the medication and is agreeable to continue taking them. PLAN: Anticipate discharge tomorrow to IOP intake. Continue with current management as patient is improving. Continue to provide support and encouragement.
[2016-04-05 16:12] VITALS: BP 137/96
[2016-04-05 19:52] VITALS: BP 142/85
--- NOTE | 2016-04-05 21:46 | NUR ---
PT IS CALM, COOPERATIVE WITH STAFF AND PEERS, AND COMPLIANT WITH UNIT RULES. PT IS IN [place], INTERACTING WITH PEERS AND STAFF. MOOD IS STABLE, AFFECT IS EUTHYMIC TO FULL RANGE, COMMUNICATION IS NORMAL, AND APPETITE IS NORMAL. PT DENIES SI AT THIS TIME.
--- NOTE | 2016-04-06 05:44 | NUR ---
SLEPT WELL, NEEDY OVERNIGHT WITH ,MULTIPLE REQUESTS FOR PAIN RELIEF AND NAUSEA.
--- NOTE | 2016-04-06 07:52 | DISCHARGE SUMMARY REPORT-PSYCH ---
Visit Information Visit Dates/Diagnosis' Admission Date: 04/03/16 Discharge Date: 04/06/16 Reason for Admission: Patient brought into the emergency room by ambulance on a PEER. She had expressed suicidal ideation, as per patient's family. Patient denied suicidal ideation and states she has a reasons for depression because of her multiple medical problems. Psy Discharge Primary Diag: Bipolar d/o unspecified, with suicidal ideation. Psy Discharge Secondary Diag: HTN; Chronic back pain; Pt reports hx of kidney damage; gastric distress; scoliosis; "chronic joint infections"; Surgical hx of hysterectomy, back and shoulder surgeries. Hospital Course Significant Lab Findings: Lab TSH 2.110 uIU/mL 04/01/16 1431 Course Complications: None Consultations: Patient was seen for admission history and physical by Dr. Olivares. Please refer to her note for additional information. Allergies: Coded Allergies: daptomycin (Severe, PALPITATIONS 04/01/16) Penicillins (Intermediate, HIVES 01/23/16) adhesive tape (Intermediate, BLISTERS 01/24/16) povidone-iodine (Intermediate, BLISTERS AND SKIN SLOUGHING 01/23/16) Uncoded Allergies: TEGADERM (BLISTERS 01/26/12) Hospital Course/TX Response: The patient was monitored on the unit for safety, depression, mood lability, and suicidal ideation. She participated in multimodal treatments on the unit. She was restarted on her medications of risperidone 1 mg twice daily, Cymbalta 30 mg daily, and Atarax 50 mg at night for anxiety and for sleep. She tolerated these medications well, to good effect. Patient participated in a family meeting along with the patient, flare worker Pallavi Gomez, Social Work Manager Hospice Tyson, and the patient's mother by conference call. During our family meeting, the patient's mother offered her support, and will be happy to have the patient return home. Mother is supportive of the patient attending [facility], and taking medications as directed. Prior to discharge, patient agreed to, and was medicated with Risperdal Consta 25mg IM. She understands that she needs to overlap with oral medications, and will continue to take oral risperidone until her outpatient prescriber instructs her to stop. She will follow up for treatment and medications at [facility]. Intake appointment today immediately upon discharge from the inpatient unit. Today, the day of discharge, patient states that she feels safe and ready for discharge. 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 States she is tolerating her medications well, without complaint. Depression:3/10; Anxiety:3/10 (with 10 the worst.) Denies suicidal ideation, homicidal ideation, auditory hallucinations, visual hallucinations, paranoid ideation. Patient states, and also believes that she will not kill herself. She reports that her sleep is good. Her appetite is normal. Speech is well articulated, goal-directed, average in rate, volume and tone. Calm, cooperative and pleasant. Logical. Alert and oriented 3. The patient understands the risks/benefits/side effects of the medication and is agreeable to continue taking them. Patient reports tolerating her medications well, without complaint. States she feels safe and ready for discharge. Discharge HBIPS - Tobacco Use Treatment Offered Post DC Medications Offered: Script Given-See Med List Post DC Tobacco Treatment Plan: [facility] Program Appt Date: 04/12/16 Program Appt Time: 1600 - EtOH/Drug Use D/O Treatment Offered Post DC Medications Offered: Ref Med EtOH/Drug Use D/O Post DC EtOH/SubAbuse TX Plan: [facility] SubAbuse/Dual IOP Program Appt Date: 04/06/16 Program Appt Time: 1245 Metabolic Screening - Screen if on a Neuroleptic Medication - Metabolic screening should include: - Blood Pressure, BMI, Glucose or Hgb A1c, & a - Lipid profile from within the past 365 days. Metabolic Screening () Not Applicable, patient not on a neuroleptic. OR ([x]) Patient on a neuroleptic(s) . Enter below results for Glucose or Hemoglobin A1C, and lipid panel if obtained during the last 365 days. BMI: 46.800 Blood Pressure: 161/89 Laboratory Results (If applicable): Lab Cholesterol 165 MG/DL 01/23/16 2345 Cholesterol/HDL Ratio 3 % 01/23/16 2345 HDL Cholesterol 51 mg/dL 01/23/16 2345 Hemoglobin A1c 5.6 04/01/16 1344 LDL Cholesterol, Calc 93 mg/dL 01/23/16 2345 Triglycerides 108 mg/dL 01/23/16 2345 Discharge Instructions General Discharge Information Discharge Medications: Discharge Medications- (Dose, route, freq, indication): HOME MEDICATION LIST START taking these NEW Home Medications: Nicotine (Nicotine Dose: On the skin, DAILY @8 AM Qty: 14 Called in to Patch) 14 MG/24 HOUR 14 Milligram for SMOKING CESSATION Refills: 0 Pharm 1 PATCH.TD24 Last Taken: 04/06/16 Time: 0800 Amlodipine Besylate Dose: ORAL, DAILY for Qty: 21 Called in to (Amlodipine 7.5 Milligram HYPERTENSION Refills: 0 Pharm 1 Besylate) 5 MG TAKE 1-1/2 TABLETS DAILY TABLET Last Taken: 04/06/16 Time: 0800 Duloxetine Dose: ORAL, DAILY for Qty: 14 Called in to Hydrochloride 30 Milligram DEPRESSION AND PAIN Refills: 0 Pharm 1 (Cymbalta) 30 MG Last Taken: 04/06/16 CAPSULE.DR Time: 0800 Risperidone Dose: ORAL, TWICE DAILY for Qty: 28 Called in to (Risperdal) 1 MG 1 Milligram CLEAR THOUGHTS Refills: 0 Pharm 1 TABLET Last Taken: 04/06/16 Time: 0800 Hydroxyzine HCl Dose: ORAL, AT BEDTIME as Qty: 14 Called in to (Hydroxyzine HCl) 50 50 Milligram needed for SLEEP Refills: 0 Pharm 1 MG TABLET Last Taken: 04/05/16 Time: 2130 Risperidone Dose: INTRAMUSC, EVERY 2 WEEKS Qty: 1 Called in to Microspheres 25 Milligram for Clear thoughts Refills: 0 Pharm 1 (Risperdal Consta) First dose given 25 MG/2 ML SYRINGE 04/06/2016. Last Taken: 04/06/16 Time: 1200PM 1: [id number], [address] [place] [id number] [facility] Pref[id number] [address] [place] [address] Multiple Neuroleptics: ([x]) Not Applicable OR Document below three failed attempts at monotherapy, or a plan to taper to monotherapy, or augmentation of Clozapine. () Patient's Diet: Regular Patient's Activity: Restrictions DC Disposition: Patient is returning home, where she lives with her extended family. Recommendations: Follow-up at [facility]. Follow up with pain management doctor. Take medications as directed. Referred To: Post Discharge Referrals Provider Referral Service Date: 04/06/16 Referred To: [[facility]] Notes: [facility] Intake appointment today, immediately upon discharge from [facility], April 06, 2014 at 12:45pm. Copies To: Intensive Outpt Psychiatry Patient's Diet: Regular Patient's Activity: Restrictions DC Disposition: Patient is returning home, where she lives with her extended family. Recommendations: Follow-up at [facility]. Follow up with pain management doctor. Take medications as directed. Referred To: Post Discharge Referrals Provider Referral Service Date: 04/06/16 Referred To: [[facility]] Notes: [facility] Intake appointment today, immediately upon discharge from [facility], April 06, 2014 at 12:45pm. Copies To: Intensive Outpt Psychiatry
[2016-04-06 08:04] VITALS: BP 161/89
--- NOTE | 2016-04-06 11:21 | CP SOUTH PROGRESS NOTE PSYCH ---
Psych (Inpt) Progress Note Progress Note Progress Note: I discussed this patient's progress to date, current mental status, treatment process in the context of the treatment plan, and discharge planning with staff/ team in the daily morning inpatient team meeting. I also met with the patient myself in individual session. A total of 30 minutes was spent with the patient with more than 50% spent in counseling and/or coordination of care. SUBJECTIVE: "I'm still a little blue, but I know I'll be okay. I need to get my pain managed too." OBJECTIVE: Current Medications Sig/Sushil Start time Last Medication Dose Route Stop Time Status Admin Acetaminophen 650 MG .STK-MED ONE 04/05 205 DC PO 04/05 205 Acetaminophen 650 MG .STK-MED ONE 04/05 1527 DC PO 04/05 1528 Acetaminophen 650 MG Q6-PRN PRN 04/04 1300 AC 04/06 PO 1130 Al Hydroxide/Mg 30 ML Q4-6 PRN PRN 04/03 1300 AC 04/04 Hydroxide PO 0929 Amlodipine Besylate 7.5 MG DAILY 04/05 1000 AC 04/06 PO 0755 Duloxetine HCl 30 MG DAILY 04/03 1000 AC 04/06 PO 0755 Hydroxyzine HCl 25 MG ONCE ONE 04/06 1045 DC 04/06 PO 04/06 1046 1044 Hydroxyzine HCl 50 MG .STK-MED ONE 04/05 2144 DC PO 04/05 2145 Hydroxyzine HCl 50 MG AT BEDTIME NEED.. 04/03 1300 AC 04/05 PO 2149 Ibuprofen 600 MG Q6P PRN 04/02 2215 AC 04/06 PO 0756 Magnesium Hydroxide 30 ML AT BEDTIME PRN 04/03 1300 AC PO Nicotine 14 MG 0804/04 1145 AC 04/06 TOP 0619 Risperidone 25 MG Q 2 WEEKS 04/06 1145 AC 04/06 IM 1140 Risperidone 12.5 MG Q 2 WEEKS 04/06 1130 CAN IM Risperidone 25 MG Q 2 WEEKS 04/06 1115 DC IM Risperidone 1 MG BID 04/02 2200 AC 04/06 PO 0755 Vital Signs Date Time Temp Pulse Resp B/P Pulse O2 O2 Flow FiO2 Ox Delivery Rate 04/06 0804 97.2 75 161/89 04/06 0755 96.9 83 18 142/85 04/05 195 96.9 83 142/85 04/05 1612 91 137/96 04/05 1322 94 143/76 ASSESSMENT: Prior to discharge, patient agreed to, and was medicated with Risperdal Consta 25mg IM. She understands that she needs to overlap with oral medications, and will continue to take oral risperidone until her outpatient prescriber instructs her to stop. She will follow up for treatment and medications at [facility]. Intake appointment today immediately upon discharge from the inpatient unit. Today patient states that she feels safe and ready for discharge. 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 States she is tolerating her medications well, without complaint. Depression:3/10; Anxiety:3/10 (with 10 the worst.) Denies suicidal ideation, homicidal ideation, auditory hallucinations, visual hallucinations, paranoid ideation. Patient states, and also believes that she will not kill herself. She reports that her sleep is good. Her appetite is normal. Speech is well articulated, goal-directed, average in rate, volume and tone. Calm, cooperative and pleasant. Logical. Alert and oriented 3. The patient understands the risks/benefits/side effects of the medication and is agreeable to continue taking them. PLAN: Discharged today to [facility]. Risperdal Consta 25 mg IM given today, next dose in 2 weeks. Continue with other current management as patient is improving. Continue to provide support and encouragement.
[2016-04-06] MEDS ORDERED: NICOTINE PATCH1 EAC2 TOP (11:34)
[2016-04-06] MEDS ORDERED: AMLODIPINE BESYL5 M1 PO (11:34)
[2016-04-06] MEDS ORDERED: CYMBALTA30 M1 PO (11:35)
[2016-04-06] MEDS ORDERED: RISPERDAL25 MG/2 ML IM (11:35)
[2016-04-06] MEDS ORDERED: RISPERDAL1 M1 PO (11:35)
[2016-04-06] MEDS ORDERED: HYDROXYZINE HCL50 M1 PO (11:36)
--- NOTE | 2016-04-06 12:00 | SOCIAL WORKER PROG NOTE PSYCH ---
Social Work Progress Note Progress Note Patient to discharge the hospital today. Patient has intake at [facility] at 12: 45pm. Patient denies SI/HI/AH/VH at present. Patient reports feeling safe to return home today and is able to contract for safety. Patient acknowledges need to continue treatment in IOP and stay on medication. Patient will be referred to dual [facility] due to substance abuse hx and will not be able to take narcotics while in this program. Patient will need to disclose this to her prescribing pain management doctor.
--- NOTE | 2016-04-06 12:57 | NUR ---
PT IS PRESENT AND ACTIVE ON THE UNIT, WHEN ASKED DIRECTLY DENIES SI/HI/HALLUCINATIONS, NO COMPLAINTS OTHER THAN PAIN WHICH IS CHRONIC AND MANAGED WITH TYLENOL & MOTRIN AND PER PT WILL FOLLOW-UP WITH PAIN MANAGEMENT DOCTOR AFTER DISCHARGE - LAWRENCE PILLAI APRN AWARE WELL. INFORMATION PACKETS RE: SI, BIPOLAR AND DEPRESSION GIVEN TO PT. PT RESOURCE GUIDE REVIEWED ALONG WITH ALL PERTINENT NUMBERS E.G., [facility], [facility], SUICIDE HOTLINE, ETC. PT'S MOOD IS STABLE WITH BRIGHT/FULL RANGE AFFECT, IS APPROPRIATE WITH PEERS AND STAFF. PT IS MOTIVATED AND HAS + UNDERSTANDING IN RE: TO MEDICATION MANAGEMENT AND FOLLOW-UP DISCHARGE PLANNING, REPORTS FEELING IMPROVED OVERALL SINCE ADMISSION.
== END 2016-04-06 13:00 | DRG 885 ==
LOC: ENRESERVTM → ENRESERVDT → ERH 13:30 → CP SOUTH 04-03 19:56 → ERHI 04-03 19:56 → CP SOUTH 04-03 20:18
PROVIDERS: Emergency Medicine; ADMIT Psychiatry & Neurology Psychiatry
DX: F31.9 Bipolar disorder, unspecified (principal); M41.9 Scoliosis, unspecified; I10 Essential (primary) hypertension; M54.9 Dorsalgia, unspecified
CPT/HCPCS: 80307; 81025; 93005; 93010; G0463; G0480; J3101

== ENCOUNTER 2017-03-05 19:37 | Emergency (ER) | payer OTHER, MEDICARE ==
[~2017-03-05] VITALS: Ht 154.9 cm; Wt 108.9 kg
[~2017-03-05 19:37] MED LIST changes: +ADVIL PM CAPLE1 EACH PO; +AMLODIPINE BESYL5 M1 PO; +COZAAR50 M1 PO; +CYMBALTA30 M1 PO; +HYDROXYZINE HCL50 M1 PO; +IBUPROFEN800 M1 PO; +LIDODERM1 EACH EXT; +LOSARTAN-HCTZ1 EACH PO; +MAGNESIUM400 M1 PO; +NICOTINE PATCH1 EAC2 TOP; +NORVASC10 M1 PO; +RISPERDAL1 M1 PO; +RISPERDAL25 MG/2 ML IM; +TRAMADOL HCL50 M1 PO
--- NOTE | 2017-03-05 19:54 | ED CARDIAC/CP/PALPITATIONS ---
History of Present Illness General Chief Complaint: General Adult Stated Complaint: BIBA HYPERTENSION Source: patient Exam Limitations: no limitations Vital Signs & Intake/Output Vital Signs & Intake/Output Vital Signs Date Time Temp Pulse Resp B/P B/P Pulse O2 O2 Flow FiO2 Mean Ox Delivery Rate 03/05 2032 98.2 102 20 130/84 99 Room Air 03/05 2024 102 03/05 2007 108 03/05 1943 98.4 119 20 145/89 100 Room Air Allergies Coded Allergies: daptomycin (Severe, PALPITATIONS 04/01/16) Penicillins (Intermediate, HIVES 01/23/16) adhesive tape (Intermediate, BLISTERS 01/24/16) povidone-iodine (Intermediate, BLISTERS AND SKIN SLOUGHING 01/23/16) silver (From TEGADERM AG MESH) (TEGADERM - BLISTERS 12/06/16) Reconcile Medications Amlodipine Besylate 5 MG TABLET 1 TAB PO DAILY BP (Reported) Ibuprofen 800 MG TABLET 1 TAB PO PRN PAIN/INFLAMMATION (Reported) LORazepam (Ativan) 1 MG TAB 1 TAB PO BID PRN ANXIETY Losartan/Hydrochlorothiazide (Losartan-Hctz 100-12.5 MG Tab) 100 MG-12.5 MG TABLET 1 TAB PO DAILY BP (Reported) Magnesium Oxide (Magnesium) 400 MG CAPSULE 1 CAP PO DAILY hypomagnesemia Triage Nurses Notes Reviewed? yes Onset: Abrupt Duration: hour(s):, better, constant, continues in ED Quality/Severity: severe HPI: Patient presents for evaluation of tachycardia and hypertension throughout today. Patient was evaluated in the emergency department a few days ago after running out of her blood pressure medications. She states that she was given a prescription for this along with some magnesium for a low magnesium level. She states she has been checking her blood pressure "all day". She describes an abrupt onset of a pounding heartbeat, pounding in the head and chest and lightheadedness along with cold palms face and temperature fluctuations beginning earlier today. She states that when she noticed that her heart rate and blood pressure were elevated she became somewhat anxious over this. She is beginning to feel better. She has been compliant with her antihypertensive medications and has taken all of her medications for today. Past History Travel History Traveled to [place] past 21 day No Medical History Any Pertinent Medical History? 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, history of hysterectomy Other Medical Hx: History of extensive back surgeries for scoliosis; bipolar disorder History of MRSA: No History of VRE: No History of CDIFF: No Surgical History Surgical History: , hysterectomy, BREAST REDUCTION L ACL SHOULDER REPAIR TONSILECTOMY ADDNOIDS REMOVED Psychosocial History Who do you live with Mother What is your primary language Greenlandic Tobacco Use: Quit >30 days ago ETOH Use: occasional use, PATIENT HAD ONE ALCOHOLIC BEVERAGE TODAY Illicit Drug Use: denies illicit drug use Family History Family History, If Any: FATHER Relation not specified for: FH: stroke Hx Contributory? No Review of Systems Review of Systems Constitutional: Reports: no symptoms. EENTM: Reports: no symptoms. Respiratory: Reports: no symptoms. Cardiovascular: Reports: see HPI. GI: Reports: no symptoms. Genitourinary: Reports: no symptoms. Musculoskeletal: Reports: no symptoms. Skin: Reports: no symptoms. Neurological/Psychological: Reports: no symptoms. Hematologic/Endocrine: Reports: no symptoms. Immunologic/Allergic: Reports: no symptoms. All Other Systems: Reviewed and Negative Physical Exam Physical Exam Cardiovascular: SEE BELOW Comments: Gen.: Well-nourished, well-developed, no acute respiratory distress. Head: Normocephalic, atraumatic. Eyes: Normal inspection bilaterally Ears: Normal inspection bilaterally Nose: Normal inspection Throat/mouth : Moist mucosa Neck: Supple, full range of motion, no goiter Heart: Rapid Regular rate and rhythm, no murmurs rubs or gallops Lungs: Clear to auscultation bilaterally with normal air entry Chest: Nontender Back: Normal range of motion Abdomen: Soft, nontender, nondistended, normal bowel sounds Extremities: Normal range of motion grossly, equal radial pulses, no cyanosis clubbing or edema Neurologic: Cranial nerves grossly intact, speech is clear Skin: warm and dry Psychiatric: Calm, cooperative, no apparent delusions or hallucinations Core Measures ACS in differential dx? No CVA/TIA Diagnosis No Sepsis Present: No Sepsis Focused Exam Completed? No Progress Differential Diagnosis: atrial fibrillation, hyperkalemia, hypovolemia, hyperthyroid, hyperventilation, PSVT, unstable angina Plan of Care: Orders Procedure Date/time Status EKG 03/05 2147 Active Telemetry/Die Maintenance Technician 03/05 1948 Active THYROID STIMULATING HORMONE 03/05 1948 Complete TROPONIN LEVEL 03/05 1948 Complete MAGNESIUM 03/05 1948 Complete CBC WITHOUT DIFFERENTIAL 03/05 1948 Complete CALCIUM 03/05 1948 Complete BASIC METABOLIC PANEL 03/05 1948 Complete Laboratory Tests 03/05/17 2000: Anion Gap 14, Estimated GFR 43 L, BUN/Creatinine Ratio 11.5, Glucose 115 H, Calcium 9.7, Magnesium 1.2 L, Troponin I < 0.01, TSH 4.640 H, CBC w Diff NO MAN DIFF REQ, RBC 4.79, MCV 93.2, MCH 31.5 H, RDW 13.3, MPV 8.3, Gran % 65.8, Lymphocytes % 26.1, Monocytes % 6.2, Eosinophils % 1.4, Basophils % 0.5, Absolute Granulocytes 5.9, Absolute Lymphocytes 2.3, Absolute Monocytes 0.6, Absolute Eosinophils 0.1, Absolute Basophils 0, PUBS MCHC 33.8 Initial ED EKG: NSR, no acute change c/w prior Prior EKG: unchanged Rhythm Strip: sinus tachycardia Comments: 03/05/2017 7:49:44 PM shows heart rate has been improving steadily based on the EMS patch and her current heart rate in the emergency department. I do not feel that any acute intervention is necessary at this time and we'll continue to monitor the heart rate and treated accordingly. 03/05/2017 9:43:27 PM I have updated Jasmine on her test results. She appears comfortable and her heart rate is 92 bpm. We have discussed the possibility of tachycardia leading to anxiety versus anxiety leading to tachycardia. The patient feels certain that anxiety is a contributing factor. She is willing to try Ativan for the anxiety component. We have discussed the possibility of adding a Lopressor to her regimen for better heart rate control but I feel given the fact that she is already on 3 different antihypertensive medications the addition of Lopressor should be left to her Departure Departure Disposition: HOME OR SELF CARE Condition: Stable Clinical Impression Primary Impression: Tachycardia Secondary Impressions: Hypomagnesemia Referrals: Nikita Mcneil MD (PCP/Family) Additional Instructions: Continue current medications. Follow-up with your primary care physician to have your magnesium level rechecked later this week. 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 Ativan as needed for tachycardia or anxiety. Return if any concerns or sudden worsening. Please note that there might be incidental findings in your evaluation that are unrelated to the current emergency department visit. Please notify your primary care doctor about this emergency department visit in order to obtain and review all of the testing performed so that these incidental findings can be monitored as needed. If you had an x-ray performed, please understand that some fractures may not be seen on the initial set of x-rays. If your symptoms persist you might need a repeat set of x-rays to check for such a fracture. If you had a laceration evaluated, please understand that foreign bodies such as glass or wood may not be visible to the naked eye or on plain x-rays. If the wound becomes red, swollen, increasingly more painful or if there is any drainage from the wound, please have it reevaluated by a physician for the possibility of a retained foreign body. If you're unable to follow up as outlined in the discharge instructions please return to the emergency department. Thank you for choosing the [facility] Emergency Department for your care. It was a pleasure to serve you today. Uli Summers M.D. [facility] Departure Forms: Customer Survey General Discharge Information Prescriptions: Current Visit Scripts LORazepam (Ativan) 1 TAB PO BID PRN ANXIETY #8 TAB Critical Care Note Critical Care Note Critical Care Time: non-applicable
[2017-03-05 20:17] LABS: ABSOLUTE BASOPHIL COUNT 0 /CUMM (0.0-0.2); ABSOLUTE EOSINOPHIL COUNT 0.1 /CUMM (0.0-0.7); ABSOLUTE GRANULOCYTE CT 5.9 /CUMM (1.4-6.5); ABSOLUTE LYMPH COUNT 2.3 /CUMM (1.2-3.4); ABSOLUTE MONOCYTE COUNT 0.6 /CUMM (0.10-0.60); BASOPHIL % 0.5 % (0.0-2.0); EOSINOPHIL % 1.4 % (0-5); GRANULOCYTE % 65.8 % (42.2-75.2); MEAN CORPUSCULAR HGB 31.5 PG (27.0-31.0); MEAN CORPUSCULAR HGB CONC 33.8 G/DL (33.0-37.0); MEAN CORPUSCULAR VOLUME 93.2 FL (81.0-99.0); MEAN PLATELET VOLUME 8.3 FL (7.4-10.4); PLATELET COUNT 239 /CUMM (130-400); RBC DISTRIBUTION WIDTH 13.3 % (11.5-14.5); RED BLOOD CELL CT 4.79 /CUMM (4.20-5.40); WHITE BLOOD CELL COUNT 8.9 /CUMM (4.8-10.8)
[2017-03-05 20:24] LABS: HEMATOCRIT 44.7 % (37-47)
[2017-03-05 20:33] VITALS: BP 130/84
[2017-03-05] MEDS ORDERED: ATIVAN1 M1 PO (21:42)
== END 2017-03-05 22:03 ==
LOC: ERH 19:37
PROVIDERS: Emergency Medicine
DX: R00.0 Tachycardia, unspecified (principal); E83.42 Hypomagnesemia
CPT/HCPCS: 93005; 93010